=== PATIENT | female | born 1970 | race Caucasian/White ===

== ENCOUNTER 2017-04-19 15:21 | Emergency (ER) | payer OTHER ==
[~2017-04-19] VITALS: Ht 167.6 cm; Wt 62.1 kg
[2017-04-19] MEDS ORDERED: NAPR500T14 PO (19:30)
== END 2017-04-19 19:30 | disposition home or self-care (01) ==
LOC: ER 15:21
DX: G44.209 Tension-type headache, unspecified, not intractable (principal)

== ENCOUNTER 2019-01-09 16:44 | Emergency (ER) | payer OTHER ==
[~2019-01-09] VITALS: Ht 167.6 cm; Wt 69.4 kg
[~2019-01-09 16:44] MED LIST: NAPR500T14 PO
== END 2019-01-09 18:22 | disposition home or self-care (01) ==
LOC: ER 16:44
DX: M62.838 Other muscle spasm (principal)